=== PATIENT | female | born 1980 | race Asian ===

== ENCOUNTER 2016-08-17 13:33 | Outpatient (CLI) | payer OTHER | END 2016-08-17 15:00 | disposition home or self-care (01) | LOC: PAN 13:33 | DX: R10.9 Unspecified abdominal pain (principal) | CPT/HCPCS: 83013 ==

== ENCOUNTER 2016-10-05 10:06 | Day surgery (SDC) | payer OTHER ==
[~2016-10-05] VITALS: Ht 152.4 cm; Wt 44.9 kg
[2016-10-05] VITALS (10 sets, daily range): BP systolic 96–109; BP diastolic 57–71
--- NOTE | 2016-10-05 11:40 | Short Stay Surgery H&P ---
History of Present Illness History of Present Illness Chief Complaint gerd, abd pain HPI Avinash Arechiga is a 36 year old female who was admitted on for Abdominal Pain Patient History Allergies: Coded Allergies: PENICILLINS (Verified Allergy, Intermediate, swelling, itch , 10/04/16) PAST MEDICAL HISTORY: (1) Abdominal pain (2) GERD (gastroesophageal reflux disease) Past Surgeries: Social History: Review of Systems Cardiovascular: Reports: no symptoms Respiratory: Reports: no symptoms Skeletal: Reports: no symptoms Gastrointestinal: Reports: see HPI Genitourinary: Reports: no symptoms Neurologic: Reports: no symptoms Endocrine: Reports: no symptoms Hematologic: Reports: no symptoms Physical Exam Vital Signs Last Vital Signs Date Time Temp Pulse Resp B/P Pulse Ox O2 Delivery O2 Flow Rate FiO2 10/05/16 10:33 97.3 60 18 102/67 98 Room Air Labs Laboratory Tests Test 10/05/16 10:15 Urine HCG, Qualitative Negative Skin: normal HENT: normal Heart: normal Lungs: normal Abdomen: normal Extremities: normal Plan Plan of Care egd Final Diagnosis: Attestation Are the patient's medical conditions optimized for surgery? Attestation Response: yes RANDA ANDRADE Oct 05, 2016 11:40
--- NOTE | 2016-10-05 11:40 | Pre-Procedure Note/Attestation ---
Pre-Procedure Note/Attestation Complete Prior to Procedure Planned Procedure: not applicable Procedure Narrative: egd Indications for Procedure Pre-Operative Diagnosis: gerd, abd pain Attestation I attest that I discussed the nature of the procedure; its benefits; risks and complications; and alternatives (and the risks and benefits of such alternatives ), prior to the procedure, with the patient (or the patient's legal sales representative). I attest that, if there was a reasonable possibility of needing a blood transfusion, the patient (or the patient's legal sales representative) was given the [facility] standardized written summary, pursuant to the Omkar Serena Blood Safety Act ([place] Health and Safety Code # 1645, as amended). I attest that I re-evaluated the patient just prior to the surgery and that there has been no change in the patient's H&P, except as documented below: RANDA ANDRADE Oct 05, 2016 11:39
[2016-10-05] MEDS ORDERED: Lidocaine 1% MPF 10mg/ml 5ml ONE (12:00)
[2016-10-05] MEDS ORDERED: Propofol 10mg/ml 20ml IV ONE (12:00)
[2016-10-05] MEDS ORDERED: LR 1000ml ONE (12:00)
--- NOTE | 2016-10-05 12:22 | Endoscopy Procedure Note ---
Endoscopy Procedure Note Indication for Procedure: abd pain, GERD Procedures Performed: EGD Operative Findings/Diagnosis: gastritis Specimen: yes Pt Tolerated Procedure Well: Yes Estimated Blood Loss: none Anesthesiologist: yasmin Anesthesia: MAC Implant(s) used?: No 50 yrs or older w/o bx or poly: Not Applicable 10yrs. F/U not recommended: Not Applicable RANDA ANDRADE Oct 05, 2016 12:22
--- NOTE | 2016-10-05 12:32 | Immediate Post-Op Evaluation ---
Immediate Post-Op Evalulation Immediate Post-Op Evalulation Procedure: EGD Date of Evaluation: Oct 05, 2016 Time of Evaluation: 12:31 IV Fluids: 200 Blood Pressure Systolic: 90 Blood Pressure Diastolic: 60 Pulse Rate: 62 Respiratory Rate: 14 O2 Sat by Pulse Oximetry: 100 Temperature (Fahrenheit): 97.4 Nausea: No Vomiting: No Complications none Patient Status: awake, reacts, patent Hydration Status: adequate Drug: none CEE ALONSO CRNA Oct 05, 2016 12:32
--- NOTE | 2016-10-05 12:33 | Anethesia Preoperative Eval ---
Anesthesia Pre-op PMH/ROS General Date of Evaluation: Oct 05, 2016 Time of Evaluation: 12:32 Anesthesiologist: amanuel ASA Score: ASA 2 Mallampati Score Class I : Soft palate, uvula, fauces, pillars visible Class II: Soft palate, uvula, fauces visible Class III: Soft palate, base of uvula visible Class IV: Only hard plate visible Mallampati Classification: Class II Surgeon: kyara Diagnosis: GERD Surgical Procedure: EGD Anesthesia History: none Family History: no anesthesia problems Allergies: Coded Allergies: PENICILLINS (Verified Allergy, Intermediate, swelling, itch , 10/04/16) Medications: see eMAR Past Medical History Cardiovascular: Denies: CAD, HTN, [place], arrhythmia, other, valve dz Pulmonary: Denies: COPD, JARVIS, asthma, other Gastrointestinal/Genitourinary: Reports: GERD Neurologic/Psychiatric: Denies: CVA, TIA, dementia, depression/anxiety, other HEENT: Denies: [place] (L), [place] (R), cataract (L), cataract (R), glaucoma, other Hematology/Immune: Denies: DVT, anemia, bleeding disorder, other Musculoskeletal/Integumentary: Denies: DDD, DJD, OA, RA, edema, other PSxH Narrative: c/s Anesthesia Pre-op Phys. Exam Physician Exam Last Vital Signs Date Time Temp Pulse Resp B/P Pulse Ox O2 Delivery O2 Flow Rate FiO2 10/05/16 10:33 97.3 60 18 102/67 98 Room Air Constitutional: NAD Neurologic: CN 2-12 intact Cardiovascular: RRR Respiratory: CTA Gastrointestinal: S/NT/ND Airway Exam Mallampati Classification 2 MO: full Dentures: no lower, no upper Anesthesia Pre-op A/P Labs Urine Test Test 10/05/16 10:15 Urine HCG, Qualitative Negative Studies Pre-op Studies: EKG - sr Risk Assessment & Plan Plan: mac Status Change Before Surgery: No Pre-Antibiotics Drug: none CEE ALONSO CRNA Oct 05, 2016 12:33
--- NOTE | 2016-10-05 13:13 | 48 Hour Post Anesthesia Eval ---
Post Anesthesia Evaluation Procedure: EGD Date of Evaluation: Oct 05, 2016 Time of Evaluation: 13:13 Blood Pressure Systolic: 102 0: 65 Pulse Rate: 75 Respiratory Rate: 14 Airway: patent Nausea: No Vomiting: No Hydration Status: adequate Cardiopulmonary Status: stable Mental Status/LOC: patient returned to baseline Follow-up Care/Observations: none Follow-up care needed: N/A CEE ALONSO CRNA Oct 05, 2016 13:13
--- NOTE | 2016-10-05 16:30 | Procedure Note ---
DATE OF PROCEDURE: 10/05/2016 SURGEON: Ben Hernandez M.D. PROCEDURE: Upper endoscopy with biopsy. ANESTHESIOLOGIST: Nallely Ford CRNA. INSTRUMENT: Olympus adult flexible upper endoscope. INDICATION: Abdominal pain, gastroesophageal reflux disease, not responding to PPI. REASON FOR PROCEDURE: The procedure, risks, benefits, and possible consequences, including hemorrhage, aspiration, perforation and infection, and alternative treatments, were explained to the patient/legal guardian by Dr. Ben Hernandez and the patient/legal guardian understood and accepted these risks. DESCRIPTION OF PROCEDURE: After informed consent was obtained and the patient was adequately sedated, Olympus upper endoscope was advanced from mouth into the second portion of duodenum and retroflexion was performed in the stomach. The patient had one diminutive polyp in the gastric prepyloric region, which was removed with the cold biopsy forceps technique. The patient had diffuse mild gastritis. Random biopsy from antrum was obtained to rule out H. pylori infection. The rest of the upper endoscopic examination was grossly within normal limits. The patient tolerated the procedure well without any complications. SUMMARY OF FINDINGS: 1. Small diminutive polyp in the prepyloric region status post biopsy. 2. Gastritis, status post biopsy. RECOMMENDATIONS: Followup biopsies results and treat accordingly. Ben Hernandez M.D. DR: Juanita JOB#: [id number] CC:
== END 2016-10-05 13:30 | disposition home or self-care (01) ==
LOC: GAS 10:06
DX: K29.50 Unspecified chronic gastritis without bleeding (principal); K31.7 Polyp of stomach and duodenum; K21.9 Gastro-esophageal reflux disease without esophagitis; Z88.0 Allergy status to penicillin
CPT/HCPCS: 43239; 81025; J2704; J7120; 94003; 94150